=== PATIENT | female | born 1970 | race American Indian/Alaskan Native ===

== ENCOUNTER 2017-08-01 06:37 | Day surgery (SDC) | payer MEDICARE ==
[2017-08-01] MEDS ORDERED: WATER FOR IRRIG STERILE IR ONE ×2 (07:33→09:49)
--- NOTE | 2017-08-01 07:56 | Anesthesia Day of Surgery ---
Anesthesia Day of Surgery - Day of Surgery Patient Examined: Yes Patient H&P Reviewed: Yes Patient is NPO: Yes Beta Blockers: No Cardiac Clearance: Yes Pulmonary Clearance: Yes
--- NOTE | 2017-08-01 07:56 | Anesthesia Consultation ---
Anesthesia Consult and Med Hx Date of service: 08/01/17 - Airway Anesthetic Teeth Evaluation: Good ROM Head & Neck: Adequate Mental/Hyoid Distance: Adequate Mallampati Class: Class IV Intubation Access Assessment: Possibly Difficult - Pulmonary Exam CTA: Yes - Cardiac Exam Cardiac Exam: No Murmur - Pre-Operative Health Status ASA Pre-Surgery Classification: ASA3 Proposed Anesthetic Plan: MAC - Pulmonary Hx Smoking: No Hx Asthma: Yes Hx Respiratory Symptoms: No SOB: No COPD: No Home Oxygen Therapy: No Hx Pneumonia: No Hx Sleep Apnea: Yes - Cardiovascular System Hx Hypertension: Yes Hx Coronary Artery Disease: No Hx Heart Attack/AMI: No Hx Angina: No Hx Percutaneous Transluminal Coronary Angioplasty (PTCA): No Hx Cardia Arrhythmia: No Hx Pacemaker: No Hx Internal Defibrillator: No Hx Valvular Heart Disease: No Hx Heart Murmur: No Hx Peripheral Vascular Disease: No - Central Nervous System Hx Neuromuscular Disorder: No Hx Seizures: No CVA: No Hx Back Pain: No Hx Psychiatric Problems: No - Gastrointestinal Hx Ulcer: No Hx Gastroesophageal Reflux Disease: No - Endocrine Hx Renal Disease: No Hx End Stage Renal Disease: No Hx Cirrhosis: No Hx Liver Disease: No Hx Insulin Dependent Diabetes: No Hx Non-Insulin Dependent Diabetes: Yes Hx Thyroid Disease: No Hx Hypothyroidism: No Hx Hyperthyroidism: No - Hematic Hx Anemia: No Hx Sickle Cell Disease: No - Other Systems Hx Alcohol Use: No Hx Substance Use: No Hx Cancer: No Hx Obesity: Yes (Morbid)
[2017-08-01] MEDS ORDERED: NACL 0.9% 1000 ML 1,000 ML IV SCH (08:00)
[2017-08-01] MEDS ORDERED: DIPRIVAN 10 MG/ML IV ONE (08:14)
[2017-08-01] MEDS ORDERED: VERSED ONE (08:14)
[2017-08-01] MEDS ORDERED: HURRICAINE ONE 20% TOPICAL SPRAY MM ×2 (08:14→16:47)
--- NOTE | 2017-08-01 08:35 | Operative Report ---
Operative Report Operative Report: OPERATIVE REPORT - EGD DATE 08/01/17 SURGERY: Upper endoscopy. SURGEON: Joe La QUILT SEWER: Domingo Sehehan DO PRE OP DX: morbid obesity, dyspepsia POST OP DX: morbid obesity, Antral ulcer, gastritis, small hiatal hernia TYPE OF ANESTHESIA: MAC. ESTIMATED BLOOD LOSS: None. COMPLICATIONS: None. SPECIMENS REMOVED: antral ulcer FINDINGS: 1. Small hiatal hernia. 2. Antral ulcer, gastritis INDICATIONS:INDICATION FOR PROCEDURE: Patient is a 47-year-old female with a long history of morbid obesity. She is planned to have a weight loss procedure and is here for preoperative planning EGD. PROCEDURE DETAILS: After consent was reviewed, patient was taken back to the operating room where patient was placed in the left lateral decubitus position and a bite block was placed in the mouth. After a time-out was called, MAC anesthesia was initiated. I then passed the endoscope into her oropharynx, into her esophagus, visualized the entire esophagus, which was all within normal limits. I then visualized the stomach and the first portion of the duodenum. The stomach showed gastritis. The antrum had 2 small white ulcers , non bleeding. The antrum was biopsied. I then retroflexed the scope in the stomach and visualized the hiatus and I could see a small hiatal hernia. I then desufflated the stomach and removed the endoscope. Patient tolerated procedure well and was transferred to recovery room in good and stable condition.
--- NOTE | 2017-08-01 08:36 | Discharge Summary ---
Providers - Providers Attending physician: JAZMÍN NAVARRETE Primary care physician: SOHAM BURNETT Hospitalization Procedures: egd Hospital course: 47 y.o. F presented for EGD. She tolerated the procedure well and was discharged. Disposition: TO HOME OR SELFCARE Core Measure Documentation - Palliative Care Palliative Care/ Comfort Measures: Not Applicable - Core Measures Any of the following diagnoses?: none Exam - Physical Exam Narrative exam: no change from prior Plan Additional Instructions: The office will be calling you in medications to your pharmacy. Follow up with: SOHAM BURNETT MD [Primary Care Provider] - 7 Days
[2017-08-01 09:03] VITALS: BP 141/88
[2017-08-01] MEDS ORDERED: XYLOCAINE MPF 2% ONE (10:00)
--- NOTE | 2017-08-01 14:17 | Post Anesthesia Evaluation ---
- Post Anesthesia Evaluation Patient Participated: Yes Airway Patent: Yes Stable Respiratory Function: Yes Nausea/Vomiting: No Temp > 96.8F: Yes Pain Manageable: Yes Adequeate Hydration: Yes Anesthesia Complications: No Block Receding Appropriately: Not Applicable
== END 2017-08-01 06:38 | disposition home or self-care (01) ==
LOC: GIO 06:37
PROVIDERS: ATTEND Specialist
DX: K29.50 Unspecified chronic gastritis without bleeding (principal); B96.81 Helicobacter pylori [H. pylori] as the cause of diseases classified elsewhere; K25.9 Gastric ulcer, unspecified as acute or chronic, without hemorrhage or perforation; K44.9 Diaphragmatic hernia without obstruction or gangrene; K21.9 Gastro-esophageal reflux disease without esophagitis; J45.909 Unspecified asthma, uncomplicated; I10 Essential (primary) hypertension; G47.30 Sleep apnea, unspecified; E11.9 Type 2 diabetes mellitus without complications; E66.01 Morbid (severe) obesity due to excess calories; F32.9 Major depressive disorder, single episode, unspecified; Z88.6 Allergy status to analgesic agent; Z68.42 Body mass index [BMI] 45.0-49.9, adult
CPT/HCPCS: 43239; 82962; 88305; 88342; J2250; J2704; 81025